=== PATIENT | male | born 1935 | race Caucasian/White ===

== ENCOUNTER → 2017-07-14 | Outpatient (CLI) | payer MEDICARE ==
[~2017-07-14] MED LIST: ASPIRIN PO; ASPIRIN81 M2 PO; BETIMOL5 ML; CIPRO PO; CRESTOR PO; ECOTRIN81 M1; LEXAPRO; LEXAPRO PO; LORTAB 7.5-5001 TAB PO; MULTI VITAMIN1 EACH; MULTI-VITAMIN1 EAC1 PO; PHENERGAN W/CO120 ML PO; PHENERGAN12.5 MG PO; PRAVACHOL; PRAVACHOL PO; REQUIP1 MG PO; ROPINIROLE HCL0.5 MG; ROPINIROLE HCL0.5 MG PO; SYNTHROID PO; SYNTHROID0.1 MG; SYNTHROID0.1 MG PO; TIMOLOL MALEATE5 M1 OU; TIMOPTIC2.5 ML OP; TYLENOL #3 PO; VOLTAREN75 MG PO; ZITHROMAX PO
--- NOTE | ~2017-07-14 | US77 ---
[facility] A Service of [facility] & [facility] RADIOLOGY TEXT RESULTS PATIENT: WENDIE CASTRO LOCATION: [facility] : 37 UNIT #: [id number] AGE: [address]: Yoni Wetzel MD SEX: M ORDER DR: [id number] [facility] [address] [place], [place] [address] [id number] O MR#: [id number] Acc #: [id number] NAME: WENDIE CASTRO. : 1935 SEX: M STUDY DATE/TIME: 07/14/2017 14:31 UNIT: [facility] ROOM: STUDY DESCRIPTION: US Kidney Bilateral Complete Attending Physician: Yoni Wetzel Jr., M.D. Referring Physician: Yoni Wetzel Jr., M.D. Ordering Physician: Yoni Wetzel Jr., M.D. Primary Care Physician: Kit Pompa M.D. MEDICAL IMAGING REPORT This report is preliminary unless electronic signature is present EXAM Renal ultrasound, 07/14/2017. HISTORY Chronic kidney disease stage 3 with labs drawn on 07/05/2017. FINDINGS The right kidney measures 10.9 cm, while the left kidney measures 10.3 cm in longitudinal dimensions. There is no evidence of hydronephrosis or nephrolithiasis. Small cysts are seen on both kidneys. There are no solid mass lesions. There is normal renal cortical echogenicity. Images of the bladder are normal. The prostate is enlarged measuring 6.6 cm x 4.3 cm x 4.8 cm. IMPRESSION 1. Bilateral renal cysts. No evidence of hydronephrosis. 2. Images of the bladder are normal. 3. Enlarged prostate. Dictated by... Ramez Bobo M.D. THIS IS AN ELECTRONICALLY VERIFIED REPORT Ramez Bobo M.D. at 07/15/2017 7:56 AM CLAUDE/oscar TD: 07/14/2017 22:32 JOB #: [id number] MEDICAL IMAGING REPORT Page 1 of 1 COPY
== END | disposition home or self-care (01) ==
LOC: CGUS 07-12 14:15
DX: N18.3 Chronic kidney disease, stage 3 (moderate) (principal); Q61.02 Congenital multiple renal cysts; N40.0 Benign prostatic hyperplasia without lower urinary tract symptoms
CPT/HCPCS: 76770